=== PATIENT | male | born 1970 | race Caucasian/White ===

== ENCOUNTER 2019-05-05 15:16 | Emergency (ER) | payer SELFPAY ==
[~2019-05-05] VITALS: Ht 175.3 cm; Wt 77.5 kg
[2019-05-05 15:22] VITALS: BP 125/87
--- NOTE | 2019-05-05 16:13 | NUR ---
BREAK RN: DR WU AT BEDSIDE DOING EXAM. PT IS GRIDING TEETH VERY LOUDLY. PT REPORTS HE CAN'T STOP. VS STABLE. CALL LIGHT IN PLACE. PT GIVEN A WARM BLANKET. WILL CONTINUE TO MONITOR WHILE PRMIARY RN IS ON BREAK.
[2019-05-05] MEDS ORDERED: DIPHENHYDRAMINE 25 MG CAPSULE PO ONE (16:30)
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
== END 2019-05-05 15:51 | disposition left against medical advice (07) ==
LOC: ED 15:45
DX: F10.10 Alcohol abuse, uncomplicated (principal); R41.0 Disorientation, unspecified; Z72.9 Problem related to lifestyle, unspecified; Y90.9 Presence of alcohol in blood, level not specified
CPT/HCPCS: 99281